=== PATIENT | male | born 1975 | race Caucasian/White ===

== ENCOUNTER 2016-12-31 06:05 | Day surgery (SDC) | payer OTHER ==
[~2016-12-31] VITALS: Ht 195.6 cm; Wt 113.4 kg
[2016-12-31 06:34] VITALS: BP 121/66
[2016-12-31 09:21] VITALS: BP 129/63
== END 2016-12-31 09:15 | disposition home or self-care (01) ==
LOC: DS 06:05 → OR 07:30 → DS 07:30
PROVIDERS: Anesthesiology Pain Medicine
PROC: BR161ZZ Fluoroscopy of Lumbar Facet Joint(s) using Low Osmolar Contrast (ICD-10-PCS; 2016-12-31)
PROC: 3E0T3TZ Introduction of Destructive Agent into Peripheral Nerves and Plexi, Percutaneous Approach (ICD-10-PCS; principal; 2016-12-31 07:30)
DX: M47.896 Other spondylosis, lumbar region (principal); G89.4 Chronic pain syndrome; Z68.31 Body mass index [BMI] 31.0-31.9, adult
CPT/HCPCS: 77003; J1100; J7040; Q0092

== ENCOUNTER 2017-05-13 06:08 | Day surgery (SDC) | payer OTHER ==
[~2017-05-13] VITALS: Ht 195.6 cm; Wt 113.4 kg
[2017-05-13 06:28] VITALS: BP 125/63
[2017-05-13 10:10] VITALS: BP 118/70
== END 2017-05-13 09:10 | disposition home or self-care (01) ==
LOC: DS 06:08 → OR 07:30 → DS 07:30
PROVIDERS: Anesthesiology Pain Medicine
PROC: BR161ZZ Fluoroscopy of Lumbar Facet Joint(s) using Low Osmolar Contrast (ICD-10-PCS; 2017-05-13)
PROC: 3E0T3TZ Introduction of Destructive Agent into Peripheral Nerves and Plexi, Percutaneous Approach (ICD-10-PCS; principal; 2017-05-13 07:30)
DX: M47.896 Other spondylosis, lumbar region (principal); G89.4 Chronic pain syndrome
CPT/HCPCS: 77003; J2001; J2250; J3010; J3301; J3490

== ENCOUNTER 2018-03-03 06:11 | Day surgery (SDC) | payer OTHER ==
[~2018-03-03] VITALS: Ht 195.6 cm; Wt 112.5 kg
[2018-03-03 06:37] VITALS: BP 144/63
[2018-03-03 10:13] VITALS: BP 121/63
== END 2018-03-03 09:25 | disposition home or self-care (01) ==
LOC: DS 06:11 → OR 07:30 → DS 08:30
PROVIDERS: Anesthesiology Pain Medicine
PROC: 3E0T3TZ Introduction of Destructive Agent into Peripheral Nerves and Plexi, Percutaneous Approach (ICD-10-PCS; principal; 2018-03-03 07:30)
DX: M47.817 Spondylosis without myelopathy or radiculopathy, lumbosacral region (principal); G89.4 Chronic pain syndrome; I10 Essential (primary) hypertension; Z68.31 Body mass index [BMI] 31.0-31.9, adult
CPT/HCPCS: 77003; J2001; J2250; J3010; J3301; J7040

== ENCOUNTER → 2018-11-17 | Outpatient (CLI) | payer OTHER | END | disposition home or self-care (01) | LOC: MI 07:22 | PROC: BQ37ZZZ Magnetic Resonance Imaging (MRI) of Right Knee (ICD-10-PCS; principal; 2018-11-17) | DX: M23.91 Unspecified internal derangement of right knee (principal); M25.461 Effusion, right knee ==